=== PATIENT | female | born 1990 | race Caucasian/White ===

== ENCOUNTER 2025-10-28 21:36 | Emergency (ER) | payer MEDICAID ==
[2025-10-28 22:15] VITALS: BP 132/55; PULSE 82; RESP 15; O2SAT 98
--- NOTE | 2025-10-28 22:36 | Physician Documentation ---
History of Present Illness ~ Chief Complaint: Ankle pain Stated Complaint: R LEG INJURY Time Seen by MD: 22:30 HPI 34-year-old female who presents to the emergency department pain to the right ankle after twisting it while roller-skating. [id number] discomfort to the ankle and to the talar area without significant deformity or bruising. She does have an antalgic gait. Medication Reconciliation Allergies: Coded Allergies: Penicillins (Verified Allergy, Unknown, 10/28/25) Sulfa (Sulfonamide Antibiotics) (Verified Allergy, Unknown, 10/28/25) codeine (Verified Allergy, Unknown, 10/28/25) Review of Systems All Other Systems at this time: Reviewed and Negative Musculoskeletal: Reports: see HPI Physical Exam Vital Signs: RN Vital Signs have been reviewed: Yes, Source: Temporal, Heart Rate: 82, Respiratory Rate: 15, BP: 132/55, Pulse Oximetry: 98 General Appearance: alert, WD/WN, mild distress Head: normal inspection EENT: PERRL/EOMI Respiratory: lungs clear Chest: no accessory muscle use Cardiovascular: normal peripheral pulses Gastrointestinal: normal palpation Back: normal inspection Legs: normal inspection Knees: normal inspection Ligaments: normal Ankles: normal ROM, soft tissue tenderness, other (No subtalar laxity, abrasions or lacerations) Achilles Tendon: normal Distal Function: no motor deficit Skin: normal color Lymphatic: normal inspection Neurologic: oriented x4 Psychiatric: normal mood/affect Progress Results/Orders Results/Orders Orders - DEYANIRA RAHMAN PAC Ortho Orders (10/28/25 ) Ortho Orders (10/28/25 ) Vital Signs 10/28/25 22:15 Pulse 82 Resp 15 B/P (MAP) 132/55 Pulse Ox 98 Medical Decision Making Additional information obtaine: N/A Findings Examination history consistent with high-grade ankle sprain requiring orthopedic cam walker boot for immobilization along with crutches. X-rays obtained reassuring for no fracture or dislocation. Patient will receive crutch instructions and advised to advance her weight as tolerated beginning with nonweightbearing. Safely discharged to follow up with the primary care physician in two return if as needed. General Diff Dx:Considerations: Include: Abrasion, Contusion, Fracture, Hematoma, Laceration, Malunion, Neurovascular injury, Open fracture, Sprain, Ulcer, Other Knee Diff Dx:Considerations: Include: Other (Noncontributory) Ankle Diff Dx:Considerations: Include: Abrasion, Arthritis, Contusion, DJD, Fracture-metatarsal, Fracture-fibula, Fracture-tarsal, Fracture-tibia, Gout, Hematoma, Laceration, Malunion, Neurovascular injury, Nonunion, Open fracture, Osteomyelitis, Rheumatoid arthritis, Sprain, Septic, Ulcer, Other Foot Diff Dx:Considerations: Include: Other (Noncontributory) Toe Diff Dx:Considerations: Include: Other (Noncontributory) Departure Disposition: HOME / SELF CARE / HOMELESS Impression: Primary Impression: Sprain of ankle Qualified Codes: S93.401A - Sprain of unspecified ligament of right ankle, initial encounter Discharge Instructions: Ankle Sprain Additional Instructions: Your x-rays obtained tonight are reassuring for no fracture. Please wear the cam walker orthopedic boot for comfort and support and begin to advance your weight as tolerated with crutch use. Your 1-2 weeks if still having pain please follow up with the primary care physician for repeat x-rays. Take Tylenol ibuprofen for discomfort. Thank you for visiting [facility]. Have a adina Jauregui. Referrals: NO PRIMARY CARE PROVIDER (PCP) Education Educated: Patient Educated regarding: diagnosis, treatment, prognosis, need for follow up Signature Scribe Signature: . Attestation: . DEYANIRA RAHMAN PAC Oct 28, 2025 22:36
--- NOTE | 2025-10-28 22:45 | RADIOLOGY REPORT ---
EXAM: DI ANKLE, COMPLETE(3VW MIN) INDICATION: ANKLE PAIN TECHNIQUE:: 3 views of the right ankle COMPARISON: None FINDINGS/IMPRESSION: No radiographic evidence of an acute osseous abnormality. There is no acute fracture, osseous malalignment, or aggressive focal osseous lesion. Lateral malleolar soft tissue swelling.
== END 2025-10-28 23:42 | disposition home or self-care (01) ==
LOC: ER 21:37
DX: S93.401A Sprain of unspecified ligament of right ankle, initial encounter (principal); Z88.0 Allergy status to penicillin; Z88.2 Allergy status to sulfonamides; Z88.5 Allergy status to narcotic agent; X50.1XXA Overexertion from prolonged static or awkward postures, initial encounter; Y93.51 Activity, roller skating (inline) and skateboarding; Y92.89 Other specified places as the place of occurrence of the external cause; Y99.8 Other external cause status
CPT/HCPCS: 73610; 99283; L4360